=== PATIENT | male | born 1945 | race Caucasian/White ===

== ENCOUNTER 2021-07-17 10:40 | Emergency (ER) | payer MEDICARE, SELFPAY ==
--- NOTE | ~2021-07-17 | XR_ITS ---
EXAMINATION: XR wrist LT min 3V DATE: 07/17/2021 11:18 INDICATION: Left wrist injury. TECHNIQUE: 4 views of left wrist were obtained. COMPARISON: None. FINDINGS: Bone alignment is normal. No fracture. There is mild osteoarthritis of distal radioulnar last int, triscaphe joint, and first carpometacarpal joint. IMPRESSION: 1. Polyarticular osteoarthritis. Reviewed, dictated and finalized at location A.
--- NOTE | ~2021-07-17 | XR_ITS ---
EXAMINATION: XR hand LT min 3V DATE: 07/17/2021 11:19 INDICATION: Left hand injury. TECHNIQUE: 3 views of left hand were obtained. COMPARISON: None. FINDINGS: Bone alignment is normal. No fracture. There is mild osteoarthritis of triscaphe joint and first carpometacarpal joint. There is moderate osteoarthritis of second metacarpophalangeal joint and mild osteoarthritis of first and third metacarpophalangeal joints and some of the interphalangeal last ints. There is moderate osteoarthritis of first interphalangeal joint. IMPRESSION: 1. Polyarticular osteoarthritis. Reviewed, dictated and finalized at location A.
[2021-07-17 11:05] VITALS: BP 142/83; PULSE 62; RESP 18; TEMP 36.3; O2SAT 99
--- NOTE | 2021-07-17 11:34 | ED.UPPEXIN ---
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 He had pain in his fourth and fifth fingers with weakness and is unable to make a full grasp nor can he supinate pronate without pain Plan is to do x-ray Related Data Home Medications Medication Instructions Recorded Confirmed dorzolamide 2 % eye drops 1 drp LEFT EYE BID 07/17/21 07/17/21 latanoprost 0.005 % eye drops 2 drp EACH EYE DAILY 07/17/21 07/17/21 levothyroxine 137 mcg tablet 1 tablet PO DAILY 07/17/21 07/17/21 paroxetine HCl 20 mg tablet 1 tablet PO DAILY 07/17/21 07/17/21 Allergies Allergy/AdvReac Type Severity Reaction Status Date / Time No Known Allergies Allergy Verified 07/17/21 11:08 Review of Systems Review of Systems: CONSTITUTIONAL: Denies fever, chills, sweats. EYES: Denies visual changes, redness, discharge. ENT: Denies rhinorrhea, congestion, sore throat, otalgia. CARDIOVASCULAR: Denies chest pain, palpitations, edema. RESPIRATORY: Denies dyspnea, wheezing, cough GASTROINTESTINAL: Denies abdominal pain, nausea, vomiting, diarrhea. GENITOURINARY: Denies dysuria, hematuria, abnormal discharge SKIN: Denies rash or itching. NEUROLOGIC: Denies numbness, or focal weakness. PSYCHIATRIC: Denies anxiety or depression. Left wrist and hand pain on the lateral side particularly fingers 4 and 5 which have some numbness there is swelling to the wrist PMFSH Past Medical History Medical History Glaucoma Hypothyroid Social History Social History (Updated 07/17/21 @ 11:53 by Karis Lora CNP) Smoking status: Former smoker Alcohol intake: current Comments At time of signature, I agree with nursing past medical, surgical, social and family history. There is no relevant family history pertinent to the presenting complaint. Exam Narrative: GENERAL: This is a well-nourished, well-developed patient, in mild distress. HEAD: normocephalic, atraumatic. EYES: Sclera clear/white. Vision is grossly intact. EARS: External ears normal, Hearing grossly intact. NOSE: External nose normal without nasal discharge, nares without redness, no rhinorrhea. THROAT: Mucous membranes moist, NECK: Neck supple, non-tender CARDIOVASCULAR: Regular rate and rhythm without murmurs, gallops, or rubs. RESPIRATORY: Clear to auscultation. Breath sounds equal bilaterally. No wheezes, rales, or rhonchi. GASTROINTESTINAL: Not done SKIN: warm, intact with no suspicious lesions or rash, good texture and turgor. NEURO: awake, alert, and oriented to person, place and time. There were no obvious focal neurologic abnormalities. Steady gait EXTREMITIES: Normal range of motion. 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
== END 2021-07-17 12:01 | disposition home or self-care (01) ==
PROVIDERS: Emergency Provider Nurse Practitioner
DX: S63.502A Unspecified sprain of left wrist, initial encounter (principal); S66.912A Strain of unspecified muscle, fascia and tendon at wrist and hand level, left hand, initial encounter; W01.0XXA Fall on same level from slipping, tripping and stumbling without subsequent striking against object, initial encounter; E03.9 Hypothyroidism, unspecified; H40.9 Unspecified glaucoma; Z87.891 Personal history of nicotine dependence
CPT/HCPCS: 73110; 73130; 99213; G0463

== ENCOUNTER 2023-05-08 08:06 | Emergency (ER) | payer MEDICARE, SELFPAY ==
[2023-05-08 08:18] VITALS: BP 131/77; PULSE 73; RESP 16; TEMP 36.8; O2SAT 98
--- NOTE | 2023-05-08 08:36 | ED.URI ---
HPI - URI/Sore Throat General Chief Complaint: Upper Respiratory Infection Stated Complaint: Sore Throat and Sinus Problems Time Seen by Provider: 05/08/23 08:23 Source: patient and RN notes reviewed Mode of arrival: ambulatory Limitations: no limitations History of Present Illness HPI Narrative: Patient presents today complaining of a 2 day history of sore throat, congestion, rhinorrhea, cough, right ear pain. Denies fever shortness of breath. Currently rates his sore throat 7/10 and has been taking cough drops, ibuprofen, and Benadryl without much relief. Patient is a preschool substitute teacher. Related Data Home Medications Medication Instructions Recorded Confirmed dorzolamide 2 % eye drops 1 drp LEFT EYE BID 07/17/21 05/08/23 latanoprost 0.005 % eye drops 2 drp EACH EYE DAILY 07/17/21 05/08/23 levothyroxine 137 mcg tablet 1 tablet PO DAILY 07/17/21 05/08/23 Allergies Allergy/AdvReac Type Severity Reaction Status Date / Time No Known Allergies Allergy Verified 05/08/23 08:13 Review of Systems Review of Systems: CONSTITUTIONAL: Denies body aches, fever, chills, or sweats. EYES: Denies visual changes, redness, or discharge. ENT: + congestion, rhinorrhea, right ear pain, sore throat CARDIOVASCULAR: Denies chest pain, palpitations, or edema. RESPIRATORY: Denies dyspnea.+ cough GASTROINTESTINAL: Denies abdominal pain, nausea, vomiting, or diarrhea. GENITOURINARY: Denies dysuria or hematuria. SKIN: Denies rash, itching, or wounds. MUSCULOSKELETAL: Denies back pain, joint pain, or myalgia. NEUROLOGIC: Denies headache, numbness, tingling, or weakness. PSYCH: Denies depression or anxiety. [facility] Past Medical History Medical History Glaucoma Hypothyroid Social History Social History Smoking status: Former smoker Alcohol intake: current Comments At time of signature, I have reviewed and agree with nursing past medical, surgical, social and family history unless otherwise noted. Please see nursing chart for further information. There is no relevant family history pertinent to the presenting complaint Exam Narrative: GENERAL: Well-appearing, well-nourished, and in no acute distress. HEAD: Normocephalic, atraumatic. EYES: EOMI. No redness or drainage. Conjunctivae normal. ENT: Mucous membranes pink and moist. Nares congested rhinorrhea. TMs normal bilaterally. Throat normal with moderate postnasal drainage. Uvula midline. NECK: Normal AROM. Supple. No lymphadenopathy. CHEST: No respiratory distress. Clear to auscultation. HEART: Regular rate and rhythm. No murmur appreciated. EXTREMITIES: Normal range of motion. No edema. SKIN: Warm, dry, no rash. Capillary refill normal. Normal skin turgor. NEURO: No focal deficits. Alert and oriented x3. Gait steady. PSYCH: Normal affect. No signs of depression or anxiety. Course Course Level of Care: Express Care Visit Vital Signs Vital signs: Vital Signs Temperature 98.3 F 05/08/23 08:18 Pulse Rate 73 05/08/23 08:18 Respiratory Rate 16 05/08/23 08:18 Blood Pressure 131/77 05/08/23 08:18 Pulse Oximetry 98 05/08/23 08:18 Temperature 98.3 F 05/08/23 08:18 Pulse Rate 73 05/08/23 08:18 Respiratory Rate 16 05/08/23 08:18 Blood Pressure 131/77 05/08/23 08:18 Pulse Oximetry 98 05/08/23 08:18 Reviewed MDM - URI/Sore Throat MDM Narrative Medical decision making narrative: Rapid strep negative. Culture pending. Declines testing for COVID and influenza. Symptoms likely viral in etiology. Discussed [id number] medication use induration of illness. Anticipatory guidance given. Differential Diagnosis Differential diagnosis: Likely upper respiratory infection, otitis media, viral infection, influenza, pharyngitis and other (Strep throat, COVID) Lab Data Attestation: I reviewed the patient's la
== END 2023-05-08 08:41 | disposition home or self-care (01) ==
PROVIDERS: Emergency Provider Nurse Practitioner
DX: J06.9 Acute upper respiratory infection, unspecified (principal); H40.9 Unspecified glaucoma; E03.9 Hypothyroidism, unspecified; Z87.891 Personal history of nicotine dependence
CPT/HCPCS: 87081; 87880; 99213; G0463

== ENCOUNTER 2023-07-22 08:50 | Outpatient (CLI) | payer MEDICARE, SELFPAY ==
--- NOTE | ~2023-07-22 | CT_ITS ---
EXAMINATION: CT sinus wo con DATE: 07/22/2023 13:09 INDICATION: Sinusitis and cough TECHNIQUE: Computed tomography (CT) of the paranasal sinuses was performed without intravenous contra st. The dose-length product was 258.77 mGy-cm. Automated exposure control and iterative reconstructio n technique were employed. COMPARISON: None FINDINGS: There is mucosal thickening of the ethmoid and maxillary sinuses. Rightward nasal septal de viation. Ostiomeatal units are patent. No air-fluid levels. No mucoperiosteal reaction. Mastoids are pneumatized. IMPRESSION: 1. Mild sinus disease. Reviewed, dictated and finalized at location B. IMPRESSION: 1. Mild sinus disease.
--- NOTE | ~2023-07-22 | CT_ITS ---
EXAMINATION:CT diagnostic chest wo con DATE: 07/22/2023 13:09 INDICATION: Chronic cough. TECHNIQUE: Computed tomography (CT) of the chest was performed without intravenous contrast. Automate d exposure control and iterative reconstruction technique were employed. The dose-length product (DLP ) was 526.28 mGy-cm. COMPARISON: CT abdomen and pelvis 05/10/2011 FINDINGS: The lungs demonstrate mild atelectasis. No bronchiectasis or honeycombing. No pleural effus ion. The heart size is normal. No pericardial effusion. There is ectasia of ascending aorta measuring 4.1 cm. There are bridging endplate osteophytes at multiple levels in the spine, consistent with dif fuse idiopathic skeletal hyperostosis (DISH). There is mild chronic anterior wedging of multiple vert ebral bodies. IMPRESSION: 1. No specific etiology for the patient's symptoms. Reviewed, dictated and finalized at location A.
== END 2023-07-22 08:51 ==
DX: J32.9 Chronic sinusitis, unspecified (principal)
CPT/HCPCS: 70486; 71250